=== PATIENT | female | born 1935 | race Caucasian/White ===

== ENCOUNTER 2016-06-16 15:08 | Emergency (ER) | payer MEDICARE ==
--- NOTE | 2016-06-16 18:23 | ERRECORD ---
[facility] EMERGENCY RECORD HPI GENERAL (23:29 LLDO) CHIEF COMPLAINT: Patient presents for evaluation of pt could not wait and left w/o being seen. ROS (23:29 LLDO) CONSTITUTIONAL: no ros done. NOTES: Systems not reviewed; unable. PAST MEDICAL HISTORY MEDICAL HISTORY: Notes: COLON CA, Past medical history includes history of hypertension, Past medical history includes pulmonary disease, chronic obstructive pulmonary disease. Flu vaccine up to date, Tetanus immunization up to date, Pneumococcal vaccine up to date, Past medical history includes history of hypertension, Past medical history includes pulmonary disease, chronic obstructive pulmonary disease. Arthritis. Breast Cancer. Past medical history includes endocrine disease, hypothyroidism. (15:55 AWAT) FEMALE SURGICAL HISTORY: Surgical history of orthopedic surgery, Notes: bilateral knee replacement. Surgical history of orthopedic surgery, Notes: bilateral knee replacement. Left breast removal. Surgical history of hysterectomy. (15:55 AWAT) SOCIAL HISTORY: Patient drinks socially, Patient denies drug use, Patient is a former tobacco user, smoked cigarettes, Patient quit smoking more than 10 years ago. Patient drinks socially, Patient denies drug use, Patient is a former tobacco user, smoked cigarettes, Patient quit smoking more than 10 years ago. (15:55 AWAT) FAMILY HISTORY: Notes: DM, HTN. Notes: DM, HTN. (15:55 AWAT) NOTES: Nursing records reviewed, Agree with nursing records, Medication list reviewed. (23:31 LLDO) KNOWN ALLERGIES Acetaminophen (Unconfirmed) avocado (Unconfirmed) Cefazolin (Unconfirmed) Cephalosporins (Unconfirmed) Hydrocodone (Unconfirmed) Sulfa (Sulfonamide Antibiotics): - Entered category: Sulfa (Sulfonamide Antibiotics) CURRENT MEDICATIONS (15:53 AWAT) aspirin: TABLET : Strength - 81 mg : ORAL Patient Dose: 81 mg Oral once a day. donepezil: TABLET : Strength - 5 mg : ORAL Patient Dose: 5 mg/min Oral 2 times a day. meTOPROLOL tartrate: TABLET : Strength - 25 mg : ORAL &a-1R&a+25V*p+0X*h2512C*c202B*c15G*c2P*p-0X&a-25V&a+1R Name: Melly Hansen : 1935 F81 MedRec: [id number] AcctNum: [id number] Prepared: ThuJun 16, 2016 23:39 by Interface Page 1 of 3 pMD [facility] EMERGENCY RECORD Patient Dose: 1 Oral 2 times a day. Procardia: CAPSULE : Strength - 10 mg : ORAL Patient Dose: 30 mg Oral once a day. meloxicam: TABLET : Strength - 7.5 mg : ORAL Patient Dose: 7.5 mg/hr 2 times a day. PriLOSEC: CAPSULE,DELAYED RELEASE (ENTERIC COATED) : Strength - 20 mg : ORAL Patient Dose: 2 times a day. Zocor: TABLET : Strength - 40 mg : ORAL Patient Dose: once a day (at bedtime). Nolvadex: TABLET : Strength - 20 mg : ORAL Patient Dose: once a day. metFORMIN: TABLET : Strength - 850 mg : ORAL Patient Dose: 2 times a day. ZyrTEC: CAPSULE : Strength - 10 mg : ORAL Patient Dose: once a day. Lasix: TABLET : Strength - 40 mg : ORAL Patient Dose: As Needed. gabapentin: TABLET : Strength - 600 mg : ORAL Patient Dose: 600 mg Oral once a day (at bedtime). potassium chloride: TABLET, EXT RELEASE, PARTICLES/CRYSTALS : Strength - 20 mEq : ORAL Patient Dose: once a day. Slow-Mag: TABLET, EXTENDED RELEASE : Strength - 64 mg : ORAL Patient Dose: Unknown. Spiriva with HandiHaler: CAPSULE, WITH INHALATION DEVICE : Strength - 18 mcg : INHALATION Patient Dose: once a day. Symbicort: HFA AEROSOL WITH ADAPTER (GRAM) : Strength - 160 mcg-4.5 mcg/actuation : INHALATION Patient Dose: 2 times a day. VITAL SIGNS (15:42 AWAT) VITAL SIGNS: BP: 134/90, Pulse: 64, Resp: 18, Temp: 98.3 (Tympanic), Pain: 5-10 (Constant), O2 sat: 92 on Room Air, Time: 06/16/2016 15:42. PHYSICAL EXAM (23:30 LLDO) CONSTITUTIONAL: no pe done. &a-1R&a+25V*p+0X*e2139Z*c202B*c15G*c2P*p-0X&a-25V&a+1R Name: Melly Hansen : 1935 F81 MedRec: [id number] AcctNum: [id number] Prepared: ThuJun 16, 2016 23:39 by Interface Page 2 of 3 pMD [facility] EMERGENCY RECORD PROBLEM LIST No recorded problems DIAGNOSIS (18:08 SHY) FINAL: PRIMARY: NONE. PRESCRIPTION No recorded prescriptions DISPOSITION (18:08 SHY) PATIENT: Disposition Type: Eloped, Disposition: Left Without Being Seen, Patient left the department. Renner: AWAT=MEGAN Jones, Matheus ORTEGA=MD Satinder, Cole BEGUM=MEGAN Baron, Mirella &a-1R&a+25V*p+0X*[id number]*c202B*c15G*c2P*p-0X&a-25V&a+1R Name: Melly Hansen : 1935 F81 MedRec: [id number] AcctNum: [id number] Prepared: ThuJun 16, 2016 23:39 by Interface Page 3 of 3 pMD MTDD
--- NOTE | 2016-06-16 18:27 | PICIS ---
[facility] EMERGENCY RECORD TRIAGE (ThuJun 16, 2016 15:49 AWAT) PATIENT: NAME: Melly Hansen, AGE: 81, GENDER: female, : Thu1935, TIME OF GREET: ThuJun 16, 2016 15:08, PREFERRED LANGUAGE: [place]ayan, ETHNICITY: Not or , FALL RISK: YES, ECODE BILLING MAP: [facility], SSN: [id number], Zip Code: [address], KG WEIGHT: 95.25, PHONE: , , , PERSON ID: [id number], PCP: Vero RICHMOND DAVID. (ThuJun 16, 2016 15:49 AWAT) TRIAGE NOTES: BACK & HIP PAIN. WENT TO URGENT CARE LAST THURSDAY, DX'D W OSTEOPEROSIS. HAS A HX OF STRESS FRACTURES. SHE SAYS THE PAIN IS GETTING WORSE. PT TRIAGED, THEN BACK TO THE WAITING ROOM. (ThuJun 16, 2016 15:49 AWAT) COMPLAINT: BACK & HIP PAIN. (ThuJun 16, 2016 15:49 AWAT) ADMISSION: URGENCY: 4 Non Urgent, ADMISSION SOURCE: Home, TRANSPORT: Walk-in, BED: WAIT. (ThuJun 16, 2016 15:49 AWAT) SIRS SCORING: Heart Rate 55-109 (0), Temp range 96.8-101.1 (0), respiratory rate 12-24 (0), Mental Status altered: no (0). (15:55 AWAT) PROVIDERS: TRIAGE NURSE: Matheus Jones RN. (ThuJun 16, 2016 15:49 AWAT) VITAL SIGNS: BP 134/90, Pulse 64, Resp 18, Temp 98.3, (Tympanic), Pain 5-10, (Constant), O2 Sat 92, on Room Air, Time 06/16/2016 15:42. (15:42 AWAT) PREVIOUS VISIT ALLERGIES: Sulfa (Sulfonamide Antibiotics). (ThuJun 16, 2016 15:49 AWAT) Sulfa (Sulfonamide Antibiotics). (15:55 AWAT) KNOWN ALLERGIES Acetaminophen (Unconfirmed) avocado (Unconfirmed) Cefazolin (Unconfirmed) Cephalosporins (Unconfirmed) Hydrocodone (Unconfirmed) Sulfa (Sulfonamide Antibiotics): - Entered category: Sulfa (Sulfonamide Antibiotics) CURRENT MEDICATIONS (15:53 AWAT) aspirin: TABLET : Strength - 81 mg : ORAL Patient Dose: 81 mg Oral once a day. donepezil: TABLET : Strength - 5 mg : ORAL Patient Dose: 5 mg/min Oral 2 times a day. meTOPROLOL tartrate: TABLET : Strength - 25 mg : ORAL Patient Dose: 1 Oral 2 times a day. Procardia: CAPSULE : Strength - 10 mg : ORAL Patient Dose: 30 mg Oral once a day. meloxicam: &a-1R&a+25V*p+0X*[id number]*c202B*c15G*c2P*p-0X&a-25V&a+1R Name: Melly Hansen : 1935 F81 MedRec: [id number] AcctNum: [id number] Prepared: ThuJun 16, 2016 23:46 by Interface Page 1 of 4 pMD [facility] EMERGENCY RECORD TABLET : Strength - 7.5 mg : ORAL Patient Dose: 7.5 mg/hr 2 times a day. PriLOSEC: CAPSULE,DELAYED RELEASE (ENTERIC COATED) : Strength - 20 mg : ORAL Patient Dose: 2 times a day. Zocor: TABLET : Strength - 40 mg : ORAL Patient Dose: once a day (at bedtime). Nolvadex: TABLET : Strength - 20 mg : ORAL Patient Dose: once a day. metFORMIN: TABLET : Strength - 850 mg : ORAL Patient Dose: 2 times a day. ZyrTEC: CAPSULE : Strength - 10 mg : ORAL Patient Dose: once a day. Lasix: TABLET : Strength - 40 mg : ORAL Patient Dose: As Needed. gabapentin: TABLET : Strength - 600 mg : ORAL Patient Dose: 600 mg Oral once a day (at bedtime). potassium chloride: TABLET, EXT RELEASE, PARTICLES/CRYSTALS : Strength - 20 mEq : ORAL Patient Dose: once a day. Slow-Mag: TABLET, EXTENDED RELEASE : Strength - 64 mg : ORAL Patient Dose: Unknown. Spiriva with HandiHaler: CAPSULE, WITH INHALATION DEVICE : Strength - 18 mcg : INHALATION Patient Dose: once a day. Symbicort: HFA AEROSOL WITH ADAPTER (GRAM) : Strength - 160 mcg-4.5 mcg/actuation : INHALATION Patient Dose: 2 times a day. VITAL SIGNS (15:42 AWAT) VITAL SIGNS: BP: 134/90, Pulse: 64, Resp: 18, Temp: 98.3 (Tympanic), Pain: 5-10 (Constant), O2 sat: 92 on Room Air, Time: 06/16/2016 15:42. NURSING PROCEDURE: NURSE NOTES (17:25 AWAT) NURSES NOTES: Notes: PT BROUGHT BACK TO ER ROOM 5 NOW. FAMILY AT HER SIDE. HPI GENERAL (23:29 LLDO) CHIEF COMPLAINT: Patient presents for evaluation of pt could not wait and left w/o being seen. &a-1R&a+25V*p+0X*t0662F*c202B*c15G*c2P*p-0X&a-25V&a+1R Name: Melly Hansen : 1935 F81 MedRec: [id number] AcctNum: [id number] Prepared: ThuJun 16, 2016 23:46 by Interface Page 2 of 4 pMD [facility] EMERGENCY RECORD ROS (23:29 LLDO) CONSTITUTIONAL: no ros done. NOTES: Systems not reviewed; unable. PAST MEDICAL HISTORY MEDICAL HISTORY: Notes: COLON CA, Past medical history includes history of hypertension, Past medical history includes pulmonary disease, chronic obstructive pulmonary disease. Flu vaccine up to date, Tetanus immunization up to date, Pneumococcal vaccine up to date, Past medical history includes history of hypertension, Past medical history includes pulmonary disease, chronic obstructive pulmonary disease. Arthritis. Breast Cancer. Past medical history includes endocrine disease, hypothyroidism. (15:55 AWAT) FEMALE SURGICAL HISTORY: Surgical history of orthopedic surgery, Notes: bilateral knee replacement. Surgical history of orthopedic surgery, Notes: bilateral knee replacement. Left breast removal. Surgical history of hysterectomy. (15:55 AWAT) SOCIAL HISTORY: Patient drinks socially, Patient denies drug use, Patient is a former tobacco user, smoked cigarettes, Patient quit smoking more than 10 years ago. Patient drinks socially, Patient denies drug use, Patient is a former tobacco user, smoked cigarettes, Patient quit smoking more than 10 years ago. (15:55 AWAT) FAMILY HISTORY: Notes: DM, HTN. Notes: DM, HTN. (15:55 AWAT) NOTES: Nursing records reviewed, Agree with nursing records, Medication list reviewed. (23:31 LLDO) PHYSICAL EXAM (23:30 LLDO) CONSTITUTIONAL: no pe done. EVENTS TRANSFER: Triage to Emergency Waiting. (ThuJun 16, 2016 15:49 AWAT) Emergency Waiting to Main ED -05. (17:27 MDEB) Removed from Emergency Main ED -05. (18:08 MDEB) PROBLEM LIST No recorded problems DIAGNOSIS (18:08 MDEB) FINAL: PRIMARY: NONE. DISPOSITION (18:08 MDEB) PATIENT: Disposition Type: Eloped, Disposition: Left Without Being Seen, Patient left the department. PRESCRIPTION No recorded prescriptions &a-1R&a+25V*p+0X*[id number]*c202B*c15G*c2P*p-0X&a-25V&a+1R Name: Melly Hansen : 1935 F81 MedRec: [id number] AcctNum: [id number] Prepared: ThuJun 16, 2016 23:46 by Interface Page 3 of 4 pMD [facility] EMERGENCY RECORD ADMIN (23:32 LLDO) DIGITAL SIGNATURE: MD Satinder, Cole. Renner: AWAT=MEGAN Jones, Matheus LLDO=MD Satinder, Cole MDEB=MEGAN Baron, Mirella &a-1R&a+25V*p+0X*[id number]*c202B*c15G*c2P*p-0X&a-25V&a+1R Name: Melly Hansen : 1935 F81 MedRec: [id number] AcctNum: [id number] Prepared: ThuJun 16, 2016 23:46 by Interface Page 4 of 4 pMD MTDD
== END 2016-06-16 18:08 | disposition left against medical advice (07) ==
LOC: MADERS 15:08
DX: Z53.21 Procedure and treatment not carried out due to patient leaving prior to being seen by health care provider (principal)

== ENCOUNTER 2017-02-25 11:40 | Emergency (ER) | payer MEDICARE ==
--- NOTE | 2017-02-25 12:31 | RAD ---
TWO VIEW CHEST: INDICATIONS: Dyspnea. COMPARISON: Prior radiographs of the chest dating back to 07/21/2014. FINDINGS: The cardiac silhouette remains enlarged with prominence of the perihilar vasculature. There is inte rstitial prominence of the mid to inferior lungs bilaterally. Numerous metallic clips overly the le ft axilla. Vascular calcification is again seen. IMPRESSION: 1. Stable chest with persistent enlargement of the cardiac silhouette. 2. The prior interstitial prominence at the right lung base on 02/28/2016 has improved. POS: [facility]
[2017-02-25 12:34] LABS: #Basophils 0.1 thou/uL (0.0-0.2); #Eosinphils 0.2 thou/uL (0.0-0.7); #Lymphocytes 3.1 thou/uL (1.20-3.40); #Monocytes 1.1 thou/uL (0.11-0.59); #Neutrophils 2.9 thou/uL (1.40-6.50); %Eosinophils 3.1 % (0.0-10.0); %Lymphocytes 41.9 % (21.0-51.0); %Monocytes 14.5 % (0.0-10.0); %Neutrophils 38.5 % (42.0-75.0); Hemoglobin 11.5 g/dL (12.0-16.0); Mean Corpuscular HGB CONC 30.9 g/dL (32.0-36.0); Mean Corpuscular Hemoglobin 27.7 pg (27.0-31.0); Mean Corpuscular Volume 89.8 fl (81.0-99.0); Mean Platelet Volume 8.8 fL (7.4-10.4); Platelet Count 139 thou/uL (130-400); RBC Distribution Width 13.4 % (11.5-14.5); Red Blood Cell (RBC) Count 4.14 mill/uL (4.20-5.40); White Blood Cell (WBC) Count 7.4 thou/uL (4.8-10.8)
[2017-02-25 12:51] LABS: ALT (SGPT) 49 U/L (8-55); AST (SGOT) 47 U/L (5-34); Albumin 3.6 g/dL (3.4-4.8); Alkaline Phosphatase 64 U/L (40-150); Anion Gap 15 mmol/L (10-20); BUN (Urea Nitrogen) 26 mg/dL (9.8-20.1); Bilirubin, Total 0.4 mg/dL (0.2-1.2); Calc. Creatinine Clearance 0 mL/min (70-130); Calcium 9.4 mg/dL (7.8-10.44); Carbon Dioxide 24 mmol/L (23-31); Chloride 105 mmol/L (98-107); Estimated GFR-MDRD 41; Globulin 3.2 g/dL (2.4-3.5); Glucose 92 mg/dL (83-110); Potassium 4.9 mmol/L (3.5-5.1); Protein, Total 6.8 g/dL (6.0-8.3); Sodium 139 mmol/L (136-145)
[2017-02-25 12:53] LABS: CKMB 2.8 ng/mL (0-6.6); Troponin I Less than 0.010 ng/mL (< 0.028)
== END 2017-02-25 13:23 | disposition home or self-care (01) ==
LOC: MADERS 11:40
DX: J20.9 Acute bronchitis, unspecified (principal); J42 Unspecified chronic bronchitis; I10 Essential (primary) hypertension; M19.90 Unspecified osteoarthritis, unspecified site; E03.9 Hypothyroidism, unspecified; Z87.891 Personal history of nicotine dependence
CPT/HCPCS: 71020; 80053; 82553; 83880; 84484; 85025; 93005

== ENCOUNTER 2017-03-08 15:29 | Emergency (ER) | payer MEDICARE ==
[2017-03-08] MEDS ORDERED: Acetaminophen/Codeine 30-300mg Tablet ONE (17:21)
[2017-03-08] MEDS ORDERED: Dexamethasone 4 MG TAB ONE (17:21)
--- NOTE | 2017-03-08 18:37 | RAD ---
FOUR VIEWS RIGHT FEMUR: Indication: Right leg pain. Comparison: None. FINDINGS: No acute fracture or subluxation is evident. There are vascular calcifications seen within the media l and posterior soft tissues of the distal thigh. There is a right total knee prosthesis that is par tially visualized. IMPRESSION: No acute osseous abnormality. POS: [facility]
== END 2017-03-08 17:45 | disposition home or self-care (01) ==
LOC: MADERS 15:29
DX: M25.551 Pain in right hip (principal); E03.9 Hypothyroidism, unspecified; F17.210 Nicotine dependence, cigarettes, uncomplicated; I10 Essential (primary) hypertension; J44.9 Chronic obstructive pulmonary disease, unspecified; M19.90 Unspecified osteoarthritis, unspecified site; Z79.82 Long term (current) use of aspirin; Z79.84 Long term (current) use of oral hypoglycemic drugs; Z79.51 Long term (current) use of inhaled steroids; Z79.899 Other long term (current) drug therapy
CPT/HCPCS: J8540

== ENCOUNTER 2017-08-05 16:00 | Outpatient (CLI) | payer MEDICARE ==
--- NOTE | 2017-08-05 18:11 | RAD ---
PA AND LATERAL OF THE CHEST 08/05/17 INDICATION: Congestion. FINDINGS: There is patchy air space opacity seen within the region of the right middle lobe suspicious for a de veloping pneumonia. Recommend radiographic followup to resolution. Surgical clips are seen in the lef t axillary region. Heart size is within normal limits. No acute osseous abnormality is evident. Surgi oksana clips are seen involving the left neck base. IMPRESSION: Patchy air space opacity seen within the region of the right middle lobe suspicious for developing pn eumonia. Recommend radiographic followup to resolution. POS: [facility]
--- NOTE | 2017-08-05 19:28 | RAD ---
RIBS LEFT SIDED GREATER THAN OR EQUAL TWO VIEW STANDARD 08/05/17 HISTORY: Fall. Upper anterior left rib pain. COMPARISON: Radiograph same day. FINDINGS: Multiple surgical clips along the left axilla. No displaced left sided rib fracture. IMPRESSION: No displaced left sided rib fracture. POS: [facility]
== END 2017-08-05 16:01 | disposition home or self-care (01) ==
LOC: MADRAD 16:00
PROVIDERS: ATTEND General Practice
DX: R07.81 Pleurodynia (principal); R09.89 Other specified symptoms and signs involving the circulatory and respiratory systems; R91.8 Other nonspecific abnormal finding of lung field
CPT/HCPCS: 71046

== ENCOUNTER 2018-01-20 13:23 | Emergency (ER) | payer MEDICARE ==
--- NOTE | 2018-01-20 14:16 | CT ---
CT HEAD NONCONTRAST: Date: 01/20/18 INDICATION: Injury related to fall, head pain. FINDINGS: There is age-appropriate size of ventricular system and mild generalized parenchymal atrophy. Mild to moderate chronic ischemic disease is present involving the cerebral white matter. There is no intrac ranial hemorrhage, mass effect, or midline shift. No depressed calvarial fracture or pneumocephalus. Referencing 03/13/17 exam, no significant interval detrimental change. A lacunar infarction in the ri t thalamus is stable, chronic. IMPRESSION: 1. No acute intracranial hemorrhage or mass effect. 2. Additional details are described above. POS: [facility]
--- NOTE | 2018-01-20 14:19 | RAD ---
PORTABLE CHEST: HISTORY: Fall with injury to chest. COMPARISON: 03/13/2017 FINDINGS: The heart is mildly prominent with aortic calcification. Mild vascular congestion. No focal infiltr ate or significant effusion. Multiple clips in the left axilla again noted. IMPRESSION: No acute abnormality. POS: [facility]
--- NOTE | 2018-01-20 14:30 | CT ---
CT CERVICAL SPINE WITHOUT CONTRAST: HISTORY: The patient fell today. Posttraumatic neck pain. COMPARISON: None. FINDINGS: No craniocervical dissociation. The lateral masses of C1 and C2 articulate appropriately. There is appropriate articulation of the facets. There is multilevel degenerative change with loss of disk sp ira height and osteophyte formation, along with facet hypertrophy. Anterolisthesis, 1.7 mm, of C3 up on C4. Anterolisthesis, 1.9 mm, of C4 upon C5. Retrolisthesis, 1.9 mm, of C5 upon C6. Spondylolist hesis is presumed to be due to degenerative change. The current study does not assess for ligamentou s injury. There is no soft tissue abnormality. There is medial deviation of both carotid arteries, causing leonora e mass effect upon the proximal cervical esophagus. The upper mediastinum and lung apices are unrema rkable. There are varying degrees of central canal stenosis and foraminal narrowing, on the basis of degenera tive change. Evaluation is limited by technique. Cervical spine vertebral body height is maintained. No fracture. Nonspecific surgical clips in the posterior left neck. Atherosclerosis of both subclavian arteries, right greater than left. IMPRESSION: 1. No fracture. 2. Extensive degenerative change due to the cervical spine. 3. If there is concern for ligamentous injury, consider MRI. POS: [facility]
== END 2018-01-20 15:50 | disposition home or self-care (01) ==
LOC: MADERS 13:23
DX: S09.90XA Unspecified injury of head, initial encounter (principal); M54.2 Cervicalgia; I10 Essential (primary) hypertension; J44.9 Chronic obstructive pulmonary disease, unspecified; Z85.3 Personal history of malignant neoplasm of breast; M19.90 Unspecified osteoarthritis, unspecified site; E03.9 Hypothyroidism, unspecified; Z85.038 Personal history of other malignant neoplasm of large intestine; Z87.891 Personal history of nicotine dependence; Z79.82 Long term (current) use of aspirin; Z79.899 Other long term (current) drug therapy; W18.30XA Fall on same level, unspecified, initial encounter
CPT/HCPCS: 70450; 71045; 72125; 94760

== ENCOUNTER 2018-05-09 08:19 | Emergency (ER) | payer MEDICARE ==
[2018-05-09] MEDS ORDERED: Acetaminophen/Codeine 30-300mg Tablet ONE (08:45)
[2018-05-09] MEDS ORDERED: Metoprolol Tartrate 50 MG TAB ONE (08:53)
[2018-05-09] MEDS ORDERED: Adacel (T-DAP) 0.5 ML VIAL ONE (09:31)
[2018-05-09] MEDS ORDERED: Triple Antibiotic Oint 1 GM Packet ONE (09:51)
--- NOTE | 2018-05-09 10:05 | CT ---
CT CHEST WITHOUT CONTRAST: HISTORY: Injury. COMPARISON: Chest radiograph 01/20/2015. FINDINGS: Mild centrilobular emphysematous changes. There is some peripheral scarring in the lower lobes with a subpleural reticulation. A 3 mm pulmonary nodule in the right upper lobe. There is mild right upper lobe bronchiectasis. No pneumothorax or effusion. No focal airspace consolidation. The thyroid is unremarkable. Dense vascular calcifications. Extensive coronary artery calcification s. Likely reactive mediastinal lymph nodes. Cholelithiasis is present. Hypodensity is present in h epatic segment 3, likely a cyst, although incompletely evaluated on this chest CT exam. There is right breast and left axillary surgical clips. There is a fracture of the manubrium of the sternum. No significant retrosternal hematoma is appreciated. Old right anterior 4th, 5th, and 6th rib fractures. No acute displaced rib fracture. Moderate levoscoliosis thoracic spine. Healing left anterior 4th, 5th, and 6th rib fractures. There is an acute left posterior 9th, 10th, and 11th rib fractures. T12 and L1 compression fractures have indwelling cement. IMPRESSION: 1. Fracture of the manubrium of the sternum as well as multiple left-sided rib fractures. 2. Multiple bilateral old rib fractures. 3. No underlying pneumothorax. 4. Mild centrilobular emphysema. 5. Small 3-4 mm pulmonary nodules right upper lobe which in a high-risk patient, an option CT in 12 months can be obtained. POS: [facility]
== END 2018-05-09 10:16 | disposition home or self-care (01) ==
LOC: MADERS 08:19
DX: S22.42XA Multiple fractures of ribs, left side, initial encounter for closed fracture (principal); S22.21XA Fracture of manubrium, initial encounter for closed fracture; S50.312A Abrasion of left elbow, initial encounter; I10 Essential (primary) hypertension; J44.9 Chronic obstructive pulmonary disease, unspecified; E03.9 Hypothyroidism, unspecified; Z87.891 Personal history of nicotine dependence; Z79.82 Long term (current) use of aspirin; Z79.84 Long term (current) use of oral hypoglycemic drugs; W19.XXXA Unspecified fall, initial encounter
CPT/HCPCS: 71250; 90471; 90715

== ENCOUNTER 2018-06-15 11:58 | Emergency (ER) | payer MEDICARE ==
[2018-06-15 13:15] LABS: ALT (SGPT) 150 U/L (8-55); AST (SGOT) 348 U/L (5-34); Albumin 3.9 g/dL (3.4-4.8); Alkaline Phosphatase 62 U/L (40-150); Anion Gap 17 mmol/L (10-20); BUN (Urea Nitrogen) 14 mg/dL (9.8-20.1); Bilirubin, Total 0.4 mg/dL (0.2-1.2); Calc. Creatinine Clearance 0 mL/min (70-130); Calcium 9.4 mg/dL (7.8-10.44); Carbon Dioxide 24 mmol/L (23-31); Chloride 99 mmol/L (98-107); Estimated GFR-MDRD 55; Globulin 3.4 g/dL (2.4-3.5); Glucose 132 mg/dL (83-110); Potassium 3.8 mmol/L (3.5-5.1); Protein, Total 7.3 g/dL (6.0-8.3); Sodium 136 mmol/L (136-145)
[2018-06-15 13:21] LABS: Band 1 % (5-11); Hemoglobin 12.5 g/dL (12.0-16.0); Lymphocytes 8 % (21-51); MDiff Complete? YES; Mean Corpuscular HGB CONC 31.9 g/dL (32.0-36.0); Mean Corpuscular Hemoglobin 28.8 pg (27.0-31.0); Mean Corpuscular Volume 90.2 fL (78.0-98.0); Monocytes 13 % (0-10); Neutrophil 76 % (42-75); PLT Morphology Comment Appears Adequate; Platelet Count 145 thou/uL (130-400); RBC Distribution Width 13.5 % (11.5-14.5); RBC Morphology Normal; Reactive Lymphocytes 2 % (0-10); Red Blood Cell (RBC) Count 4.34 mill/uL (4.20-5.40); White Blood Cell (WBC) Count 4.7 thou/uL (4.8-10.8)
[2018-06-15] MEDS ORDERED: Oseltamivir 75 MG CAP ONE (13:34)
[2018-06-15 14:14] LABS: Clarity Clear (Clear); Glucose, Urine (Dipstick) Negative (Negative); Leukocyte Negative (Negative); Nitrite Negative (Negative); Protein, Urine (Dipstick) 100 mg/dL (Neg-Trace); Specific Gravity, Urine 1.025 (1.005-1.030)
[2018-06-15 14:15] LABS: Bilirubin Negative (Negative); Blood, Urine Moderate (Negative); Urobilinogen 0.2 mg/dL (0.2-1.0)
--- NOTE | 2018-06-15 14:24 | RAD ---
CHEST 1 VIEW: HISTORY: Altered mental status. COMPARISON: 01/20/2018. FINDINGS: Cardiac silhouette is magnified by projection. Pulmonary vasculature remains upper limits of normal. Mediastinum is midline with aortic calcification. No lobar consolidation or evidence of pneumothor ax. Postoperative changes left axilla and left neck. IMPRESSION: Chronic-type findings are stable. POS: [facility]
[2018-06-15 14:25] LABS: WBC/HPF None Seen HPF (0-3)
[2018-06-15 14:26] LABS: Bacteria/HPF Rare-Few HPF (None Seen)
--- NOTE | 2018-06-15 14:28 | CT ---
NONCONTRAST CT HEAD: DATE: 06/15/2018. HISTORY: Altered mental status for 3 days. Lethargic. COMPARISON: 01/20/2018. FINDINGS: Again noted is decreased attenuation of the periventricular white matter which is nonspecific but lik suha reflective of moderate chronic small-vessel ischemic changes. There is no evidence of an acute c ortical infarction or hemorrhage seen. Remote lacunar infarction in the right thalamus is again seen . There is mild cerebral volume loss. The ventricular system is normal in size, shape, and position fo r the degree of sulcal atrophy. There is mild mucosal thickening seen within the ethmoidal air cells bilaterally. No other interval change. IMPRESSION: 1. No acute intracranial abnormality is demonstrated. 2. Chronic small-vessel ischemic change and cerebral volume loss which have not significantly progre ssed from the prior study. 3. Stable remote lacunar infection right thalamus. POS: [facility]
== END 2018-06-15 14:35 | disposition home or self-care (01) ==
LOC: MADERS 11:58
DX: J10.1 Influenza due to other identified influenza virus with other respiratory manifestations (principal); I10 Essential (primary) hypertension; J44.9 Chronic obstructive pulmonary disease, unspecified; E03.9 Hypothyroidism, unspecified; Z79.84 Long term (current) use of oral hypoglycemic drugs; Z79.899 Other long term (current) drug therapy; Z79.82 Long term (current) use of aspirin
CPT/HCPCS: 70450; 71045; 80053; 81003; 81015; 84484; 85025; 87086; 87804; 93005; 94760; A4353

== ENCOUNTER 2018-12-05 14:24 | Emergency (ER) | payer MEDICARE ==
[2018-12-05] MEDS ORDERED: Acetaminophen 500 MG TAB ONE (15:02)
--- NOTE | 2018-12-05 15:13 | RAD ---
EXAM: XR Knee Lt 4 View STANDARD PROVIDED CLINICAL HISTORY: Pain COMPARISON: None FINDINGS: Comminuted nondistracted patellar fracture. Prominent prepatellar soft tissue swelling. Postoperative changes of total knee arthroplasty without evidence for hardware loosening or migration. Vascular calcifications are seen. IMPRESSION: Patellar fracture.
== END 2018-12-05 16:06 | disposition home or self-care (01) ==
LOC: MADERS 14:24
DX: S82.045A Nondisplaced comminuted fracture of left patella, initial encounter for closed fracture (principal); I10 Essential (primary) hypertension; J44.9 Chronic obstructive pulmonary disease, unspecified; M19.90 Unspecified osteoarthritis, unspecified site; E03.9 Hypothyroidism, unspecified; W17.89XA Other fall from one level to another, initial encounter; Z87.891 Personal history of nicotine dependence

== ENCOUNTER 2019-02-07 13:08 | Emergency (ER) | payer MEDICARE ==
[~2019-02-07 13:08] MED LIST: Sodium Chloride Irrig Solution 250 ML BOT ONE
--- NOTE | 2019-02-07 14:12 | CT ---
CT CHEST WITHOUT CONTRAST LIMITED CT SCAN THORACIC SPINE CLINICAL INDICATION: Right chest pain after injury. COMPARISON: 05/09/[address] THORAX: Aorta: Lack of intravenous contrast limits sensitivity for evaluation of the vascular structures. Den se vascular calcifications are seen in the thoracic aorta and involving the coronary arteries. The thoracic aorta is normal in caliber. Lungs: There are minimal scattered emphysematous changes in the upper lobes bilaterally with linear a reas of scarring and/or atelectasis present at each lung base and in the posterior aspect of the right upper lobe. No pneumothorax or pleural effusion is seen. Mediastinum: There is no evidence of lymphadenopathy. No mediastinal hematoma is seen. Thyroid gland: Grossly normal nonenhanced CT appearance. Osseous structures: There is a remote healed fracture of the manubrium which represented an acute fra cture on the prior exam. Multiple remote left-sided rib fractures are seen. Chest wall: There are postsurgical changes likely related to left mastectomy with surgical clips seen in the left axillary region. Upper abdomen: Again noted is evidence of cholelithiasis. There is a stable hypodense lesion again se en in the left hepatic lobe extremity straight characteristics is compatible with a cyst on prior CT abdomen with IV contrast and 06/28/2018. LIMITED CT SCAN THORACIC SPINE: There is mild S-shaped sclerotic curvature of the thoracolumbar spine with multilevel degenerative ch anges in the thoracic spine. Vertebroplasty changes of the T12 and L1 vertebral bodies are again seen. No definite fracture or subluxation is seen involving the thoracic spine. IMPRESSION: 1. Limited evaluation of the thorax due to lack of intravenous contrast limiting evaluation of the va scular structures and mediastinum. There is no evidence of a mediastinal hematoma. 2. No pneumothorax or pleural effusion is seen. 3. Mild chronic lung changes. 4. Dense vascular calcifications. 5. Remote left-sided rib fractures as well as remote real fracture. No acute fractures seen on this e xam. 6. Multilevel degenerative changes in the thoracic spine with vertebroplasty changes at T12 and L1 ve rtebral body again seen. 7. Cholelithiasis.
== END 2019-02-07 14:35 | disposition home or self-care (01) ==
LOC: MADERS 13:08
DX: S41.112A Laceration without foreign body of left upper arm, initial encounter (principal); S20.221A Contusion of right back wall of thorax, initial encounter; S00.83XA Contusion of other part of head, initial encounter; I10 Essential (primary) hypertension; J44.9 Chronic obstructive pulmonary disease, unspecified; M19.90 Unspecified osteoarthritis, unspecified site; E03.9 Hypothyroidism, unspecified; Z87.891 Personal history of nicotine dependence; Z79.899 Other long term (current) drug therapy; Z79.82 Long term (current) use of aspirin; Z79.84 Long term (current) use of oral hypoglycemic drugs; W18.30XA Fall on same level, unspecified, initial encounter
CPT/HCPCS: 71250; 94760

== ENCOUNTER 2019-03-04 09:00 | Emergency (ER) | payer MEDICARE ==
[2019-03-04] MEDS ORDERED: Lidocaine 1% w/Epinephrine 1:100K 20 ML VIAL ONE (09:18)
[2019-03-04 09:40] LABS: #Basophils 0.1 thou/uL (0.0-0.2); #Eosinphils 0.1 thou/uL (0.0-0.7); #Lymphocytes 1.6 thou/uL (1.20-3.40); #Monocytes 0.8 thou/uL (0.11-0.59); #Neutrophils 3.1 thou/uL (1.40-6.50); %Basophils 2.1 % (0.0-1.0); %Eosinophils 2.3 % (0.0-10.0); %Lymphocytes 27.4 % (21.0-51.0); %Monocytes 13.2 % (0.0-10.0); Hemoglobin 11.1 g/dL (12.0-16.0); Mean Corpuscular HGB CONC 32.2 g/dL (32.0-36.0); Mean Corpuscular Hemoglobin 27.9 pg (27.0-31.0); Mean Corpuscular Volume 86.7 fL (78.0-98.0); Platelet Count 106 thou/uL (130-400); RBC Distribution Width 14.5 % (11.5-14.5); Red Blood Cell (RBC) Count 3.96 mill/uL (4.20-5.40); White Blood Cell (WBC) Count 5.7 thou/uL (4.8-10.8)
[2019-03-04 09:46] LABS: PTT 23.8 SEC (22.9-36.1); Prothrombin Time 13.3 SEC (12.0-14.7)
--- NOTE | 2019-03-04 09:49 | CT ---
EXAM: CT brain without contrast HISTORY: Fall with head trauma COMPARISON: 06/15/2018 TECHNIQUE: Multiple contiguous axial images were obtained and a CT of the brain without contrast. FINDINGS: There are scattered hypodensities in the subcortical and periventricular white matter consi stent with small vessel ischemic disease. There is no evidence of hydrocephalus, intracranial hemorrhage, or extra-axial fluid collection. There is soft tissue swelling in the left forehead. The calvarium is unremarkable. The visualized par anasal sinuses and mastoid air cells are well aerated. IMPRESSION: No evidence of acute intracranial abnormality
[2019-03-04 09:52] LABS: Anion Gap 14 mmol/L (10-20); BUN (Urea Nitrogen) 23 mg/dL (9.8-20.1); Calc. Creatinine Clearance 0 mL/min (70-130); Calcium 9.3 mg/dL (7.8-10.44); Carbon Dioxide 27 mmol/L (23-31); Chloride 103 mmol/L (98-107); Estimated GFR-MDRD 47; Glucose 112 mg/dL (83-110); Potassium 4.8 mmol/L (3.5-5.1); Sodium 139 mmol/L (136-145)
--- NOTE | 2019-03-04 09:52 | CT ---
EXAM: CT cervical spine PROVIDED CLINICAL HISTORY: Fall with pain COMPARISON: 01/20/2018 FINDINGS: No evidence for fracture or traumatic subluxation. No prevertebral soft tissue swelling apparent. Vi sualized lung apices appear clear. Advanced multilevel cervical degenerative changes with associated degenerative anterolisthesis at multiple levels, appearing similar to prior. Vascular calc ification is seen involving the carotid arteries. IMPRESSION: No evidence for fracture or traumatic subluxation.
[2019-03-04 09:54] LABS: Anisocytosis SLIGHT = 6-15 cells (100X) (0-5/hpf)
[2019-03-04 09:55] LABS: Platelet Morphology Comment Appears Adequate
--- NOTE | 2019-03-04 10:00 | RAD ---
RIGHT KNEE 4 VIEWS: Date: 03/04/19 HISTORY: Fall, right knee pain. FINDINGS/IMPRESSION: There are postop changes of total knee arthroplasty in good position and alignment. No acute fracture or dislocation is identified. No perihardware lucency is identified to suggest loosening. POS: [facility]
[2019-03-04] MEDS ORDERED: Adacel (T-DAP) 0.5 ML SYRINGE ONE (10:58)
== END 2019-03-04 12:15 | disposition short-term general hospital (02) ==
LOC: MADERS 09:00
DX: S01.01XA Laceration without foreign body of scalp, initial encounter (principal); S80.01XA Contusion of right knee, initial encounter; S05.12XA Contusion of eyeball and orbital tissues, left eye, initial encounter; I10 Essential (primary) hypertension; J44.9 Chronic obstructive pulmonary disease, unspecified; M19.90 Unspecified osteoarthritis, unspecified site; Z85.3 Personal history of malignant neoplasm of breast; E03.9 Hypothyroidism, unspecified; Z87.891 Personal history of nicotine dependence; Z79.899 Other long term (current) drug therapy; Z79.51 Long term (current) use of inhaled steroids; Z23 Encounter for immunization; Z79.82 Long term (current) use of aspirin; Z85.038 Personal history of other malignant neoplasm of large intestine; W01.198A Fall on same level from slipping, tripping and stumbling with subsequent striking against other object, initial encounter
CPT/HCPCS: 70450; 72125; 80048; 85025; 85610; 85730; 90471; 90715; J2001

== ENCOUNTER 2019-07-21 08:03 | Emergency (ER) | payer MEDICARE ==
--- NOTE | 2019-07-21 08:58 | RAD ---
2 VIEWS RIGHT HIP: Date: 07/21/2019 COMPARISON: 07/20/14. HISTORY: Right hip pain for 3 weeks. FINDINGS: 2 views of the right hip show no evidence of acute fracture or dislocation. No degenerative changes a re seen. No soft tissue swelling is seen. IMPRESSION: No evidence of acute osseous abnormality. POS: [facility]
--- NOTE | 2019-07-21 10:26 | RAD ---
AP PELVIS: Date: 07/21/2019 HISTORY: Pelvic injury. COMPARISON: 08/09/2014 exam. FINDINGS: Old left parasymphyseal fractures are again noted. The pelvic ring is otherwise intact. No acute inju ry. Arthritic changes of the lower lumbar spine are seen. IMPRESSION: Old post-traumatic changes of the symphysis. No acute injury. POS: [facility]
== END 2019-07-21 10:25 | disposition home or self-care (01) ==
LOC: MADERS 08:03
DX: S39.011A Strain of muscle, fascia and tendon of abdomen, initial encounter (principal); J44.9 Chronic obstructive pulmonary disease, unspecified; M19.90 Unspecified osteoarthritis, unspecified site; E03.9 Hypothyroidism, unspecified; Z87.891 Personal history of nicotine dependence; Z79.899 Other long term (current) drug therapy; Z79.84 Long term (current) use of oral hypoglycemic drugs; Z79.82 Long term (current) use of aspirin; W19.XXXA Unspecified fall, initial encounter
CPT/HCPCS: 72170

== ENCOUNTER 2020-06-21 14:10 | Outpatient (CLI) | payer MEDICARE ==
--- NOTE | 2020-06-21 14:41 | RAD ---
EXAM: XR Elbow Lt 4 View STANDARD PROVIDED CLINICAL HISTORY: Closed fracture COMPARISON: None FINDINGS: Overlying cast material obscures detail. There is a displaced fracture of the olecranon. Degenerative changes are seen. No definite additional fracture is evident. IMPRESSION: As above.
== END 2020-06-21 14:11 | disposition home or self-care (01) ==
LOC: MADRAD 14:10
PROVIDERS: ATTEND Orthopaedic Surgery
DX: S52.022A Displaced fracture of olecranon process without intraarticular extension of left ulna, initial encounter for closed fracture (principal); M19.022 Primary osteoarthritis, left elbow

== ENCOUNTER 2020-11-26 21:05 | Emergency (ER) | payer MEDICARE ==
[2020-11-26] MEDS ORDERED: Boostrix 0.5 ML (Tdap) VIAL ONE (21:47)
== END 2020-11-26 22:54 ==
LOC: MADERS 21:05
DX: S92.355A Nondisplaced fracture of fifth metatarsal bone, left foot, initial encounter for closed fracture (principal); S01.01XA Laceration without foreign body of scalp, initial encounter; I10 Essential (primary) hypertension; J44.9 Chronic obstructive pulmonary disease, unspecified; M19.90 Unspecified osteoarthritis, unspecified site; E03.9 Hypothyroidism, unspecified; Z87.891 Personal history of nicotine dependence; Z85.038 Personal history of other malignant neoplasm of large intestine; W17.89XA Other fall from one level to another, initial encounter
CPT/HCPCS: 12001; 26600; 70450; 72125; 90471; 90715

== ENCOUNTER 2021-10-16 12:53 | Emergency (ER) | payer MEDICARE | END 2021-10-16 16:53 | disposition short-term general hospital (02) | LOC: MADERS 12:53 | DX: S82.141A Displaced bicondylar fracture of right tibia, initial encounter for closed fracture (principal); S82.831A Other fracture of upper and lower end of right fibula, initial encounter for closed fracture; S90.811A Abrasion, right foot, initial encounter; I10 Essential (primary) hypertension; J44.9 Chronic obstructive pulmonary disease, unspecified; E03.9 Hypothyroidism, unspecified; M06.9 Rheumatoid arthritis, unspecified; F03.90 Unspecified dementia, unspecified severity, without behavioral disturbance, psychotic disturbance, mood disturbance, and anxiety; W18.12XA Fall from or off toilet with subsequent striking against object, initial encounter; Z85.3 Personal history of malignant neoplasm of breast; Z85.038 Personal history of other malignant neoplasm of large intestine; Z87.891 Personal history of nicotine dependence; Z79.899 Other long term (current) drug therapy | CPT/HCPCS: 70450; 71045; 72125; 72170 ==

== ENCOUNTER 2021-10-17 21:20 | Inpatient (IN) | payer OTHER, MEDICARE ==
[2021-10-17] MEDS ORDERED: traMADol HCl 50 MG TAB PO PRN (23:44)
[2021-10-18] MEDS: Lorazepam 0.5 MG TAB PO PRN ×2 (00:04→22:16)
[2021-10-18] MEDS: traMADol HCl 50 MG TAB PO SCH ×3 (00:05→12:31)
[2021-10-18] MEDS: Acetaminophen 500 MG TAB PO SCH ×4 (00:06→17:37)
[2021-10-18 00:18] VITALS: BMI 29.0
[2021-10-18 05:58] LABS: Anion Gap 13 mmol/L (10-20); BUN (Urea Nitrogen) 30 mg/dL (9.8-20.1); Calc. Creatinine Clearance 38 mL/min (70-130); Calcium 8.3 mg/dL (7.8-10.44); Carbon Dioxide 23 mmol/L (23-31); Chloride 108 mmol/L (98-107); Glucose 92 mg/dL (83-110); Hemoglobin 9.3 g/dL (12.0-16.0); Mean Corpuscular HGB CONC 33.6 g/dL (32.0-36.0); Mean Corpuscular Hemoglobin 30.5 pg (27.0-31.0); Mean Corpuscular Volume 90.7 fL (78.0-98.0); Mean Platelet Volume 10.5 fL (7.4-10.4); Platelet Count 81 thou/uL (130-400); Potassium 4.6 mmol/L (3.5-5.1); RBC Distribution Width 12.4 % (11.5-14.5); Red Blood Cell (RBC) Count 3.05 mill/uL (4.20-5.40); Sodium 139 mmol/L (136-145); White Blood Cell (WBC) Count 9.8 thou/uL (4.8-10.8)
[2021-10-18] MEDS ORDERED: Levothyroxine Sodium 100 MCG TAB PO SCH (06:00)
[2021-10-18] MEDS: Levothyroxine Sodium 100 MCG TAB PO SCH (06:15)
[2021-10-18] MEDS ORDERED: NIFEdipine 10 MG CAP PO SCH (09:00)
[2021-10-18] MEDS: Donepezil HCl 10 MG TAB PO SCH ×2 (09:07→21:03)
[2021-10-18] MEDS: Senokot S 8.6-50 MG TAB PO SCH ×2 (09:07→21:04)
[2021-10-18] MEDS: Metoprolol Tartrate 25 MG TAB PO SCH ×2 (09:07→21:04)
[2021-10-18] MEDS: Mometasone/Formoterol 200/5 60 PUFF INH SCH ×2 (09:07→21:05)
[2021-10-18] MEDS: Ipratropium Bromide 2.5 ml Neb NEB SCH ×4 (09:08→21:05)
[2021-10-18] MEDS: Polyethylene Glycol 3350 17 GM Packet PO SCH (09:08)
[2021-10-18] MEDS ORDERED: NIFEdipine XL 30 MG TAB PO SCH (11:00)
[2021-10-18] MEDS ORDERED: Loratadine 10 MG TAB PO SCH (21:00)
[2021-10-18] MEDS: Divalproex Sodium 250 MG (DR) TAB PO SCH (21:03)
[2021-10-18] MEDS: metFORMIN 850 MG TAB PO SCH (21:04)
[2021-10-18] MEDS: Venlafaxine XR 37.5 MG CAP PO SCH (21:04)
[2021-10-19] MEDS: Acetaminophen 500 MG TAB PO SCH ×4 (00:45→17:45)
[2021-10-19] MEDS: Acetaminophen/Codeine 30-300mg Tablet PO PRN ×2 (03:16→08:33)
[2021-10-19] MEDS: Ondansetron ODT 4 MG TAB PO PRN (03:21)
[2021-10-19] MEDS: Levothyroxine Sodium 100 MCG TAB PO SCH (05:23)
[2021-10-19 05:42] LABS: #Basophils 0.1 thou/uL (0.0-0.2); #Eosinphils 0.1 thou/uL (0.0-0.7); #Lymphocytes 1.4 thou/uL (1.20-3.40); #Monocytes 1.3 thou/uL (0.11-0.59); #Neutrophils 6.8 thou/uL (1.40-6.50); %Basophils 1.1 % (0.0-1.0); %Eosinophils 1.1 % (0.0-10.0); %Lymphocytes 14.5 % (21.0-51.0); %Monocytes 13.3 % (0.0-10.0); %Neutrophils 70.1 % (42.0-75.0); Hemoglobin 9.5 g/dL (12.0-16.0); Mean Corpuscular HGB CONC 31.9 g/dL (32.0-36.0); Mean Corpuscular Hemoglobin 29.8 pg (27.0-31.0); Mean Corpuscular Volume 93.4 fL (78.0-98.0); Mean Platelet Volume 11.4 fL (7.4-10.4); Platelet Count 96 thou/uL (130-400); Platelet Morphology Comment Appears Decreased; RBC Distribution Width 12.9 % (11.5-14.5); RBC Morphology Normal; Red Blood Cell (RBC) Count 3.19 mill/uL (4.20-5.40); White Blood Cell (WBC) Count 9.7 thou/uL (4.8-10.8)
[2021-10-19] MEDS: Donepezil HCl 10 MG TAB PO SCH ×2 (08:30→21:01)
[2021-10-19] MEDS: Mometasone/Formoterol 200/5 60 PUFF INH SCH ×2 (08:30→21:03)
[2021-10-19] MEDS: NIFEdipine XL 30 MG TAB PO SCH (08:31)
[2021-10-19] MEDS: Polyethylene Glycol 3350 17 GM Packet PO SCH (08:32)
[2021-10-19] MEDS: Senokot S 8.6-50 MG TAB PO SCH ×2 (08:32→21:01)
[2021-10-19] MEDS: Ipratropium Bromide 2.5 ml Neb NEB SCH ×4 (08:32→21:02)
[2021-10-19] MEDS: Metoprolol Tartrate 25 MG TAB PO SCH ×2 (08:33→21:01)
[2021-10-19] MEDS ORDERED: NIFEdipine XL 30 MG TAB PO SCH (09:00)
[2021-10-19] MEDS: Venlafaxine XR 37.5 MG CAP PO SCH (21:00)
[2021-10-19] MEDS: metFORMIN 850 MG TAB PO SCH (21:00)
[2021-10-19] MEDS: Divalproex Sodium 250 MG (DR) TAB PO SCH (21:01)
[2021-10-19] MEDS: Lantiseptic Ointment 130 GM JAR TOP PRN (21:03)
[2021-10-19] MEDS: Nystatin Cream 15 GM TUBE TOP SCH (21:03)
[2021-10-20] MEDS: Acetaminophen 500 MG TAB PO SCH ×4 (00:50→17:39)
[2021-10-20] MEDS: Levothyroxine Sodium 100 MCG TAB PO SCH (06:28)
[2021-10-20] MEDS: Mometasone/Formoterol 200/5 60 PUFF INH SCH ×2 (08:33→22:26)
[2021-10-20] MEDS: Ipratropium Bromide 2.5 ml Neb NEB SCH ×4 (08:33→22:25)
[2021-10-20] MEDS: Donepezil HCl 10 MG TAB PO SCH ×2 (08:34→22:25)
[2021-10-20] MEDS: NIFEdipine XL 30 MG TAB PO SCH (08:34)
[2021-10-20] MEDS: Polyethylene Glycol 3350 17 GM Packet PO SCH (08:34)
[2021-10-20] MEDS: Nystatin Cream 15 GM TUBE TOP SCH ×2 (08:35→22:27)
[2021-10-20] MEDS: Senokot S 8.6-50 MG TAB PO SCH ×2 (08:35→22:26)
[2021-10-20] MEDS: Metoprolol Tartrate 25 MG TAB PO SCH ×2 (08:35→22:25)
[2021-10-20] MEDS: Acetaminophen/Codeine 30-300mg Tablet PO PRN (13:16)
[2021-10-20] MEDS: Cyclobenzaprine 10 MG TAB PO PRN (14:58)
[2021-10-20] MEDS: Venlafaxine XR 37.5 MG CAP PO SCH (22:25)
[2021-10-20] MEDS: metFORMIN 850 MG TAB PO SCH (22:25)
[2021-10-20] MEDS: Divalproex Sodium 250 MG (DR) TAB PO SCH (22:25)
[2021-10-20] MEDS: Lantiseptic Ointment 130 GM JAR TOP PRN (22:28)
[2021-10-21] MEDS: Acetaminophen 500 MG TAB PO SCH ×4 (00:59→17:37)
[2021-10-21] MEDS: Levothyroxine Sodium 100 MCG TAB PO SCH (06:07)
[2021-10-21] MEDS: Polyethylene Glycol 3350 17 GM Packet PO SCH (09:25)
[2021-10-21] MEDS: NIFEdipine XL 30 MG TAB PO SCH (09:26)
[2021-10-21] MEDS: Donepezil HCl 10 MG TAB PO SCH ×2 (09:26→21:00)
[2021-10-21] MEDS: Senokot S 8.6-50 MG TAB PO SCH ×2 (09:26→20:58)
[2021-10-21] MEDS: Metoprolol Tartrate 25 MG TAB PO SCH ×2 (09:26→21:01)
[2021-10-21] MEDS: Ipratropium Bromide 2.5 ml Neb NEB SCH ×4 (09:26→21:01)
[2021-10-21] MEDS: Nystatin Cream 15 GM TUBE TOP SCH ×2 (09:27→21:05)
[2021-10-21] MEDS: Mometasone/Formoterol 200/5 60 PUFF INH SCH ×2 (09:39→21:01)
[2021-10-21] MEDS: Venlafaxine XR 37.5 MG CAP PO SCH (20:59)
[2021-10-21] MEDS: metFORMIN 850 MG TAB PO SCH (21:00)
[2021-10-21] MEDS: Divalproex Sodium 250 MG (DR) TAB PO SCH (21:00)
[2021-10-21] MEDS: Lantiseptic Ointment 130 GM JAR TOP PRN (21:03)
[2021-10-22] MEDS: Acetaminophen 500 MG TAB PO SCH ×4 (00:36→17:30)
[2021-10-22] MEDS: Levothyroxine Sodium 100 MCG TAB PO SCH (05:45)
[2021-10-22] MEDS: Mometasone/Formoterol 200/5 60 PUFF INH SCH ×2 (09:40→20:48)
[2021-10-22] MEDS: Metoprolol Tartrate 25 MG TAB PO SCH ×2 (09:41→20:46)
[2021-10-22] MEDS: NIFEdipine XL 30 MG TAB PO SCH (09:41)
[2021-10-22] MEDS: Ipratropium Bromide 2.5 ml Neb NEB SCH ×4 (09:41→20:48)
[2021-10-22] MEDS: Senokot S 8.6-50 MG TAB PO SCH ×2 (09:42→20:46)
[2021-10-22] MEDS: Nystatin Cream 15 GM TUBE TOP SCH ×2 (09:42→20:55)
[2021-10-22] MEDS: Polyethylene Glycol 3350 17 GM Packet PO SCH (09:42)
[2021-10-22] MEDS: Donepezil HCl 10 MG TAB PO SCH ×2 (09:42→20:47)
[2021-10-22] MEDS: Lantiseptic Ointment 130 GM JAR TOP PRN ×2 (09:42→20:55)
[2021-10-22] MEDS: Venlafaxine XR 37.5 MG CAP PO SCH (20:46)
[2021-10-22] MEDS: Divalproex Sodium 250 MG (DR) TAB PO SCH (20:47)
[2021-10-22] MEDS: metFORMIN 850 MG TAB PO SCH (20:47)
[2021-10-22] MEDS: Cyclobenzaprine 10 MG TAB PO PRN (20:51)
[2021-10-23] MEDS: Acetaminophen 500 MG TAB PO SCH ×4 (00:20→17:11)
[2021-10-23] MEDS: Levothyroxine Sodium 100 MCG TAB PO SCH (05:50)
[2021-10-23] MEDS: Ipratropium Bromide 2.5 ml Neb NEB SCH ×4 (08:26→21:45)
[2021-10-23] MEDS: Senokot S 8.6-50 MG TAB PO SCH ×2 (08:28→21:44)
[2021-10-23] MEDS: Metoprolol Tartrate 25 MG TAB PO SCH ×2 (08:28→21:44)
[2021-10-23] MEDS: NIFEdipine XL 30 MG TAB PO SCH (08:28)
[2021-10-23] MEDS: Nystatin Cream 15 GM TUBE TOP SCH ×2 (08:29→21:46)
[2021-10-23] MEDS: Donepezil HCl 10 MG TAB PO SCH ×2 (08:29→21:43)
[2021-10-23] MEDS: Polyethylene Glycol 3350 17 GM Packet PO SCH (08:29)
[2021-10-23] MEDS: Mometasone/Formoterol 200/5 60 PUFF INH SCH ×2 (08:30→21:42)
[2021-10-23 08:41] LABS: Hemoglobin 10.6 g/dL (12.0-16.0); Mean Corpuscular Hemoglobin 30.2 pg (27.0-31.0); Mean Corpuscular Volume 91.2 fL (78.0-98.0); Mean Platelet Volume 9.9 fL (7.4-10.4); Platelet Count 148 thou/uL (130-400); RBC Distribution Width 12.3 % (11.5-14.5); Red Blood Cell (RBC) Count 3.52 mill/uL (4.20-5.40); White Blood Cell (WBC) Count 12.7 thou/uL (4.8-10.8)
[2021-10-23 16:07] LABS: SARS-CoV-2 PCR by NAA Not Detected (NotDetected)
[2021-10-23] MEDS: metFORMIN 850 MG TAB PO SCH (21:43)
[2021-10-23] MEDS: Venlafaxine XR 37.5 MG CAP PO SCH (21:44)
[2021-10-23] MEDS: Divalproex Sodium 250 MG (DR) TAB PO SCH (21:45)
[2021-10-23] MEDS: Cyclobenzaprine 10 MG TAB PO PRN (21:45)
[2021-10-23] MEDS: Lantiseptic Ointment 130 GM JAR TOP PRN (21:47)
[2021-10-24] MEDS: Acetaminophen 500 MG TAB PO SCH ×4 (01:11→17:51)
[2021-10-24] MEDS: Levothyroxine Sodium 100 MCG TAB PO SCH (06:03)
[2021-10-24] MEDS: Donepezil HCl 10 MG TAB PO SCH ×2 (08:44→20:35)
[2021-10-24] MEDS: Senokot S 8.6-50 MG TAB PO SCH ×2 (08:44→20:36)
[2021-10-24] MEDS: Ipratropium Bromide 2.5 ml Neb NEB SCH ×4 (08:45→20:40)
[2021-10-24] MEDS: Mometasone/Formoterol 200/5 60 PUFF INH SCH ×2 (08:45→20:38)
[2021-10-24] MEDS: NIFEdipine XL 30 MG TAB PO SCH (08:45)
[2021-10-24] MEDS: Metoprolol Tartrate 25 MG TAB PO SCH ×2 (08:45→20:34)
[2021-10-24] MEDS: Polyethylene Glycol 3350 17 GM Packet PO SCH (08:46)
[2021-10-24] MEDS: Nystatin Cream 15 GM TUBE TOP SCH ×2 (08:46→20:39)
[2021-10-24] MEDS: Ondansetron ODT 4 MG TAB PO PRN (19:10)
[2021-10-24] MEDS: Acetaminophen/Codeine 30-300mg Tablet PO PRN (20:31)
[2021-10-24] MEDS: metFORMIN 850 MG TAB PO SCH (20:34)
[2021-10-24] MEDS: Divalproex Sodium 250 MG (DR) TAB PO SCH (20:35)
[2021-10-24] MEDS: Venlafaxine XR 37.5 MG CAP PO SCH (20:36)
[2021-10-25] MEDS: Acetaminophen 500 MG TAB PO SCH ×4 (00:31→18:05)
[2021-10-25] MEDS: Levothyroxine Sodium 100 MCG TAB PO SCH (05:52)
[2021-10-25] MEDS: Senokot S 8.6-50 MG TAB PO SCH ×2 (08:36→20:59)
[2021-10-25] MEDS: Donepezil HCl 10 MG TAB PO SCH ×2 (08:36→21:00)
[2021-10-25] MEDS: Metoprolol Tartrate 25 MG TAB PO SCH ×2 (08:36→21:00)
[2021-10-25] MEDS: Mometasone/Formoterol 200/5 60 PUFF INH SCH ×2 (08:37→21:01)
[2021-10-25] MEDS: Ipratropium Bromide 2.5 ml Neb NEB SCH ×4 (08:37→21:02)
[2021-10-25] MEDS: NIFEdipine XL 30 MG TAB PO SCH (08:37)
[2021-10-25] MEDS: Nystatin Cream 15 GM TUBE TOP SCH ×2 (08:38→21:05)
[2021-10-25] MEDS: Polyethylene Glycol 3350 17 GM Packet PO SCH (08:39)
[2021-10-25] MEDS: Cyclobenzaprine 10 MG TAB PO PRN (13:35)
[2021-10-25] MEDS: metFORMIN 850 MG TAB PO SCH (20:58)
[2021-10-25] MEDS: Venlafaxine XR 37.5 MG CAP PO SCH (20:59)
[2021-10-25] MEDS: Divalproex Sodium 250 MG (DR) TAB PO SCH (20:59)
[2021-10-26] MEDS: Acetaminophen 500 MG TAB PO SCH ×5 (00:54→22:51)
[2021-10-26] MEDS: Levothyroxine Sodium 100 MCG TAB PO SCH (05:41)
[2021-10-26] MEDS: Nystatin Cream 15 GM TUBE TOP SCH ×2 (09:09→20:49)
[2021-10-26] MEDS: Donepezil HCl 10 MG TAB PO SCH ×2 (09:09→20:38)
[2021-10-26] MEDS: Metoprolol Tartrate 25 MG TAB PO SCH ×2 (09:09→20:38)
[2021-10-26] MEDS: Polyethylene Glycol 3350 17 GM Packet PO SCH (09:09)
[2021-10-26] MEDS: Senokot S 8.6-50 MG TAB PO SCH ×2 (09:09→20:39)
[2021-10-26] MEDS: NIFEdipine XL 30 MG TAB PO SCH (09:09)
[2021-10-26] MEDS: Ipratropium Bromide 2.5 ml Neb NEB SCH ×4 (09:10→20:40)
[2021-10-26] MEDS: Mometasone/Formoterol 200/5 60 PUFF INH SCH ×2 (09:13→20:40)
[2021-10-26] MEDS: Acetaminophen/Codeine 30-300mg Tablet PO PRN (09:13)
[2021-10-26] MEDS: Venlafaxine XR 37.5 MG CAP PO SCH (20:38)
[2021-10-26] MEDS: metFORMIN 850 MG TAB PO SCH (20:38)
[2021-10-26] MEDS: Divalproex Sodium 250 MG (DR) TAB PO SCH (20:39)
[2021-10-26] MEDS: Cyclobenzaprine 10 MG TAB PO PRN (21:49)
[2021-10-27] MEDS: Levothyroxine Sodium 100 MCG TAB PO SCH (05:56)
[2021-10-27] MEDS: Acetaminophen 500 MG TAB PO SCH ×4 (05:56→23:12)
[2021-10-27] MEDS: Mometasone/Formoterol 200/5 60 PUFF INH SCH ×2 (09:37→21:28)
[2021-10-27] MEDS: Polyethylene Glycol 3350 17 GM Packet PO SCH (09:38)
[2021-10-27] MEDS: Donepezil HCl 10 MG TAB PO SCH ×2 (09:38→21:27)
[2021-10-27] MEDS: NIFEdipine XL 30 MG TAB PO SCH (09:38)
[2021-10-27] MEDS: Senokot S 8.6-50 MG TAB PO SCH ×2 (09:39→21:28)
[2021-10-27] MEDS: Metoprolol Tartrate 25 MG TAB PO SCH ×2 (09:39→21:27)
[2021-10-27] MEDS: Ipratropium Bromide 2.5 ml Neb NEB SCH ×4 (09:40→21:28)
[2021-10-27] MEDS: Nystatin Cream 15 GM TUBE TOP SCH ×2 (09:40→23:16)
[2021-10-27] MEDS: Lorazepam 0.5 MG TAB PO PRN (14:45)
[2021-10-27] MEDS: Cyclobenzaprine 10 MG TAB PO PRN (21:26)
[2021-10-27] MEDS: Divalproex Sodium 250 MG (DR) TAB PO SCH (21:26)
[2021-10-27] MEDS: metFORMIN 850 MG TAB PO SCH (21:27)
[2021-10-27] MEDS: Venlafaxine XR 37.5 MG CAP PO SCH (21:28)
[2021-10-28] MEDS: Levothyroxine Sodium 100 MCG TAB PO SCH (05:51)
[2021-10-28] MEDS: Acetaminophen 500 MG TAB PO SCH ×3 (05:51→17:39)
[2021-10-28] MEDS: Donepezil HCl 10 MG TAB PO SCH ×2 (08:24→20:23)
[2021-10-28] MEDS: Ipratropium Bromide 2.5 ml Neb NEB SCH ×4 (08:25→21:18)
[2021-10-28] MEDS: Metoprolol Tartrate 25 MG TAB PO SCH ×2 (08:25→20:27)
[2021-10-28] MEDS: NIFEdipine XL 30 MG TAB PO SCH (08:25)
[2021-10-28] MEDS: Mometasone/Formoterol 200/5 60 PUFF INH SCH ×2 (08:25→20:22)
[2021-10-28] MEDS: Senokot S 8.6-50 MG TAB PO SCH ×2 (08:25→20:22)
[2021-10-28] MEDS: Nystatin Cream 15 GM TUBE TOP SCH ×2 (08:26→20:22)
[2021-10-28] MEDS: Polyethylene Glycol 3350 17 GM Packet PO SCH (08:26)
[2021-10-28] MEDS: Acetaminophen/Codeine 30-300mg Tablet PO PRN (08:28)
[2021-10-28] MEDS: Cyclobenzaprine 10 MG TAB PO PRN (14:58)
[2021-10-28] MEDS: Venlafaxine XR 37.5 MG CAP PO SCH (20:21)
[2021-10-28] MEDS: Divalproex Sodium 250 MG (DR) TAB PO SCH (20:24)
[2021-10-28] MEDS: metFORMIN 850 MG TAB PO SCH (20:26)
[2021-10-29] MEDS: Acetaminophen/Codeine 30-300mg Tablet PO PRN ×2 (00:22→09:57)
[2021-10-29] MEDS: Lorazepam 0.5 MG TAB PO PRN ×2 (00:23→15:14)
[2021-10-29] MEDS: Acetaminophen 500 MG TAB PO SCH ×4 (00:28→17:18)
[2021-10-29] MEDS: Levothyroxine Sodium 100 MCG TAB PO SCH (06:01)
[2021-10-29] MEDS: Mometasone/Formoterol 200/5 60 PUFF INH SCH ×2 (09:57→21:40)
[2021-10-29] MEDS: Ipratropium Bromide 2.5 ml Neb NEB SCH ×4 (09:57→21:43)
[2021-10-29] MEDS: Donepezil HCl 10 MG TAB PO SCH ×2 (09:58→21:31)
[2021-10-29] MEDS: NIFEdipine XL 30 MG TAB PO SCH (09:58)
[2021-10-29] MEDS: Metoprolol Tartrate 25 MG TAB PO SCH ×2 (09:59→21:31)
[2021-10-29] MEDS: Senokot S 8.6-50 MG TAB PO SCH ×2 (09:59→21:31)
[2021-10-29] MEDS: Polyethylene Glycol 3350 17 GM Packet PO SCH (09:59)
[2021-10-29] MEDS: Nystatin Cream 15 GM TUBE TOP SCH ×2 (09:59→21:34)
[2021-10-29] MEDS: Venlafaxine XR 37.5 MG CAP PO SCH (21:31)
[2021-10-29] MEDS: Divalproex Sodium 250 MG (DR) TAB PO SCH (21:31)
[2021-10-29] MEDS: metFORMIN 850 MG TAB PO SCH (21:32)
[2021-10-30] MEDS: Acetaminophen 500 MG TAB PO SCH ×4 (00:51→17:00)
[2021-10-30] MEDS: Levothyroxine Sodium 100 MCG TAB PO SCH (06:17)
[2021-10-30 07:47] VITALS: BP 139/70; TEMP 98
[2021-10-30] MEDS: Donepezil HCl 10 MG TAB PO SCH (08:51)
[2021-10-30] MEDS: Metoprolol Tartrate 25 MG TAB PO SCH (08:55)
[2021-10-30] MEDS: NIFEdipine XL 30 MG TAB PO SCH (08:55)
[2021-10-30] MEDS: Nystatin Cream 15 GM TUBE TOP SCH (08:56)
[2021-10-30] MEDS: Senokot S 8.6-50 MG TAB PO SCH (08:56)
[2021-10-30] MEDS: Polyethylene Glycol 3350 17 GM Packet PO SCH (08:56)
[2021-10-30] MEDS: Mometasone/Formoterol 200/5 60 PUFF INH SCH (08:56)
[2021-10-30] MEDS: Ipratropium Bromide 2.5 ml Neb NEB SCH ×3 (08:57→17:02)
== END 2021-10-30 17:45 | DRG 560 ==
LOC: MADMS 21:20 → UNDOADMIN 21:20
PROVIDERS: ADMIT Family Medicine; ATTEND Family Medicine
DX: S82.201D Unspecified fracture of shaft of right tibia, subsequent encounter for closed fracture with routine healing (principal); F03.91 Unspecified dementia, unspecified severity, with behavioral disturbance; M97.11XD Periprosthetic fracture around internal prosthetic right knee joint, subsequent encounter; S82.401D Unspecified fracture of shaft of right fibula, subsequent encounter for closed fracture with routine healing; W01.0XXD Fall on same level from slipping, tripping and stumbling without subsequent striking against object, subsequent encounter; I11.9 Hypertensive heart disease without heart failure; E03.9 Hypothyroidism, unspecified; D69.6 Thrombocytopenia, unspecified; F41.9 Anxiety disorder, unspecified; R26.81 Unsteadiness on feet; Z91.81 History of falling; E11.42 Type 2 diabetes mellitus with diabetic polyneuropathy; Z96.653 Presence of artificial knee joint, bilateral; D64.9 Anemia, unspecified; Z66 Do not resuscitate; Z20.822 Contact with and (suspected) exposure to COVID-19; J43.9 Emphysema, unspecified; Z90.12 Acquired absence of left breast and nipple; Z88.2 Allergy status to sulfonamides; Z91.018 Allergy to other foods; Z79.899 Other long term (current) drug therapy; Z79.891 Long term (current) use of opiate analgesic; Z79.890 Hormone replacement therapy; Z79.84 Long term (current) use of oral hypoglycemic drugs; Z85.3 Personal history of malignant neoplasm of breast
CPT/HCPCS: 36415; 36416; 80048; 80164; 82728; 84443; 85025; 85027; 94664; J7620; Q0162; U0003; U0005

== ENCOUNTER 2021-11-29 08:04 | Outpatient (CLI) | payer MEDICARE | END 2021-11-29 08:05 | disposition home or self-care (01) | LOC: MADLAB 08:04 | DX: E08.40 Diabetes mellitus due to underlying condition with diabetic neuropathy, unspecified (principal) | CPT/HCPCS: 83036 ==

== ENCOUNTER 2023-06-12 10:39 | Emergency (ER) | payer MEDICARE ==
[2023-06-12] MEDS ORDERED: Sodium Chloride 0.9% 500 ML ONE ×2 (11:00→12:22)
[2023-06-12 11:10] LABS: #Basophils 0.1 thou/uL (0.0-0.2); #Eosinphils 0.1 thou/uL (0.0-0.7); #Lymphocytes 1.5 thou/uL (1.20-3.40); #Monocytes 0.8 thou/uL (0.11-0.59); #Neutrophils 4.1 thou/uL (1.40-6.50); %Basophils 1.6 % (0.0-1.0); %Eosinophils 1.4 % (0.0-10.0); %Monocytes 12.6 % (0.0-10.0); %Neutrophils 61.5 % (42.0-75.0); Hematocrit 33.4 % (36.0-47.0); Hemoglobin 10.6 g/dL (12.0-16.0); Mean Corpuscular HGB CONC 31.9 g/dL (32.0-36.0); Mean Corpuscular Hemoglobin 27.6 pg (27.0-31.0); Mean Corpuscular Volume 86.4 fl (78.0-98.0); Mean Platelet Volume 9.3 fL (7.4-10.4); Platelet Count 226 10x3/uL (130-400); RBC Distribution Width 14.6 % (11.5-14.5); Red Blood Cell (RBC) Count 3.86 mill/uL (4.20-5.40); White Blood Cell (WBC) Count 6.6 10x3/uL (4.8-10.8)
[2023-06-12 11:23] LABS: ALT (SGPT) Less than 7 U/L (8-55); AST (SGOT) 10 U/L (5-34); Albumin 2.9 g/dL (3.4-4.8); Alkaline Phosphatase 51 U/L (40-110); Anion Gap 17 mmol/L (10-20); BUN (Urea Nitrogen) 11 mg/dL (9.8-20.1); Bilirubin, Total 0.3 mg/dL (0.2-1.2); Calc. Creatinine Clearance 0 mL/min (70-130); Calcium 8.9 mg/dL (7.8-10.44); Carbon Dioxide 24 mmol/L (23-31); Chloride 102 mmol/L (98-107); Estimated GFR 64; Globulin 4.4 g/dL (2.4-3.5); Glucose 141 mg/dL (83-110); Potassium 4.3 mmol/L (3.5-5.1); Protein, Total 7.3 g/dL (5.8-8.1); Sodium 139 mmol/L (136-145)
[2023-06-12 11:24] LABS: Troponin I Less than 0.010 ng/mL (< 0.028)
[2023-06-12 12:40] LABS: Bilirubin Small (Negative); Blood, Urine Moderate (Negative); Clarity Slightly Cloudy (Clear); Glucose, Urine (Dipstick) Negative (Negative); Ketone, Urine Trace mg/dL (Negative); Leukocyte Trace (Negative); Nitrite Negative (Negative); Protein, Urine (Dipstick) Trace mg/dL (Neg-Trace); Specific Gravity, Urine 1.025 (1.005-1.030); pH, Urine 6.5 (5.0-9.0)
[2023-06-12 12:45] LABS: CAUTI Indications for Culture Alt mental st,lethar
[2023-06-12 12:47] LABS: Bacteria/HPF 3+ HPF (None Seen); Squamous Epithelial 0-3 HPF (0-3)
[2023-06-12 12:48] LABS: Urine Culture Reflex No No
== END 2023-06-12 13:16 ==
LOC: MADERS 10:39
DX: Z00.00 Encounter for general adult medical examination without abnormal findings (principal); I10 Essential (primary) hypertension; E03.9 Hypothyroidism, unspecified; Z87.891 Personal history of nicotine dependence
CPT/HCPCS: 71045; 80053; 81001; 83735; 83880; 84484; 85025; 87086; 93005; 96360; 96361; J7030